=== PATIENT | female | born 1995 | race Caucasian/White ===

== ENCOUNTER 2016-05-12 17:45 | Observation (INO) | payer BC, MEDICAID ==
[2016-05-12 18:31] LABS: URINE BILIRUBIN NEGATIVE (NEG); URINE BLOOD NEGATIVE (NEG); URINE GLUCOSE (UA) NEGATIVE (NEG); URINE KETONE NEGATIVE (NEG); URINE LEUKOCYTE ESTERASE POSITIVE (NEG); URINE NITRITE NEGATIVE (NEG); URINE PROTEIN NEGATIVE (NEG)
[2016-05-12 18:32] LABS: URINE APPEARANCE CLEAR; URINE COLOR PALE YELLOW
[2016-05-12 18:47] LABS: URINE BACTERIA 1+; URINE RBC 0 /[HPF] (0-5)
== END 2016-05-12 20:20 ==
LOC: LDR 17:45
PROVIDERS: ADMIT Obstetrics & Gynecology
DX: O99.89 Other specified diseases and conditions complicating pregnancy, childbirth and the puerperium (principal); R10.2 Pelvic and perineal pain; Z3A.25 25 weeks gestation of pregnancy; Z87.891 Personal history of nicotine dependence